=== PATIENT | male | born 1965 | race Caucasian/White ===

== ENCOUNTER 2016-09-28 10:11 | Emergency (ER) | payer OTHER ==
[~2016-09-28] VITALS: Ht 188 cm; Wt 83.5 kg
[~2016-09-28 10:11] MED LIST: ACETAMINOPHEN-1 EAC1 ORAL; ALBUTEROL SULF8.5 GM INH; AZITHROMYCIN500 MG ORAL; FLONASE ALLERG9.9 ML NS; IBUPROFEN600 MG ORAL; NKM; PROMETHAZINE-C118 M1 ORAL; ZITHROMAX250 MG ORAL; ZYRTEC10 MG ORAL
[2016-09-28 10:16] VITALS: BP 117/78
[2016-09-28] MEDS ORDERED: COLACE100 MG ORAL (10:33)
[2016-09-28] MEDS ORDERED: KEFLEX500 MG ORAL (10:33)
[2016-09-28] MEDS ORDERED: IBUPROFEN600 MG ORAL (10:33)
[2016-09-28] MEDS ORDERED: BACTRIM DS TAB1 EAC1 ORAL (10:33)
[2016-09-28] MEDS ORDERED: NORCO 5-325 TA1 EACH ORAL (10:33)
[2016-09-28] MEDS ORDERED: Norco 5mg/325mg tab ORAL ONE (10:45)
--- NOTE | 2016-09-28 15:21 | Emergency Room Report ---
History of Present Illness General Chief Complaint: Skin Rash/Abscess Source: Patient Present Illness HPI Patient presents emergency department today complaining of rash and pain to his left testicular area. He states that he's had a history of a cyst there in the past. He states that the pain has been getting worse over last couple days. He noticed that he was coming to ahead and expressed her last night and pus came out. In any fever chest pain shortness breath. Denies any dysuria or frequency. Denies any immunocompromising conditions. He does shave in this area. Symptoms noted to be severe. No other modifying factors. No other associated signs and symptoms. No other complaints were noted. Allergies: Coded Allergies: NO KNOWN ALLERGIES (Unverified Allergy, Unknown, 03/12/15) Patient History Past Medical History: none Past Surgical History: none Pertinent Family History: none Social History: Denies: alcohol use, drug use, smoking Reviewed Nursing Documentation: PMH: Agreed, PSxH: Agreed Nursing Documentation-PMH Past Medical History: No History, Except For Review of Systems All Other Systems: negative except mentioned in HPI Physical Exam Vital Signs Date Time Temp Pulse Resp B/P Pulse Ox O2 Delivery O2 Flow Rate FiO2 09/28/16 10:16 97.5 17 117/78 98 Room Air 09/28/16 10:16 68 Sp02 EP Interpretation: reviewed, normal General Appearance: normal inspection, well appearing, no apparent distress, alert Head: atraumatic Eyes: bilateral eye normal inspection ENT: normal ENT inspection, hearing grossly normal, normal voice Neck: normal inspection, full range of motion, supple, no bony tend Respiratory: normal inspection, lungs clear, normal breath sounds, no respiratory distress, no retraction, no wheezing Cardiovascular #1: regular rate, rhythm, no edema Gastrointestinal: normal inspection, normal bowel sounds, non tender, soft, no guarding, no hernia Genitourinary: no CVA tenderness, other - Left scrotal erythema and tenderness no evidence of fluctuance Musculoskeletal: normal inspection, back normal, normal range of motion Neurologic: normal inspection, alert, responsive, speech normal Psychiatric: normal inspection, judgement/insight normal, mood/affect normal Skin: normal inspection, normal color, no rash Medical Decision Making Diagnostic Impression: Primary Impression: Abscess Additional Impression: Cellulitis ER Course Patient presents emergency department today complaining of left sided scrotal pain and swelling. Differential considerations include infection, cellulitis, abscess, fornier's gangrene. Patient exam is consistent with mild cellulitis and abscess. After the patient would benefit from antibiotics. There is no evidence of fluctuance and pus has already been expressed by the patient therefore I felt that no kind he was near this time. Recommend antibiotics and close followup.Patient is advised to follow up with primary doctor in 2-3 days and return the emergency room for any worsening symptoms and as needed. Last Vital Signs Date Time Temp Pulse Resp B/P Pulse Ox O2 Delivery O2 Flow Rate FiO2 09/28/16 10:16 97.5 68 17 117/78 98 Room Air Status: improved Disposition: HOME, SELF-CARE Condition: Stable Scripts Docusate Sodium* (COLACE*) 100 Mg Capsule 100 MG ORAL TWICE A DAY for 14 Days, CAP Prov: DEEPTI OLVERA M.D. 09/28/16 Trimethoprim/Sulfamethoxazole 160/800* (BACTRIM DS TABLET*) 1 Each Tablet 1 TAB ORAL Q12H, #14 TAB 0 Refills Prov: DEEPTI OLVERA M.D. 09/28/16 Cephalexin* (KEFLEX*) 500 Mg Capsule 500 MG ORAL Q6H, #28 CAP 0 Refills Prov: DEEPTI OLVERA M.D. 09/28/16 Ibuprofen* (MOTRIN*) 600 Mg Tablet 600 MG ORAL Q8H Y for For Pain, #30 TAB 0 Refills Prov: DEEPTI OLVERA M.D. 09/28/16 Hydrocodone Bit/Acetaminophen 5-325* (NORCO 5-325*) 1 Each Tablet 1 TAB ORAL Q6H Y for For Pain, #20 TAB 0 Refills Prov: DEEPTI OLVERA M.D. 09/28/16 Referrals: [facility] (PCP) Departure Forms: Return to Work Return to Work in (Days): 5 Patient Instructions: Abscess DEEPTI OLVERA M.D. Sep 28, 2016 15:21
[2016-09-28 15:43] VITALS: BP 124/74
== END 2016-09-28 11:17 | disposition home or self-care (01) ==
LOC: EMR 10:35
DX: N49.2 Inflammatory disorders of scrotum (principal)
CPT/HCPCS: 99284

== ENCOUNTER 2018-08-19 13:22 | Emergency (ER) | payer OTHER ==
[~2018-08-19] VITALS: Ht 188 cm; Wt 86.2 kg
[~2018-08-19 13:22] MED LIST changes: +BACTRIM DS TAB1 EAC1 ORAL; +COLACE100 MG ORAL; +KEFLEX500 MG ORAL; +NORCO 5-325 TA1 EACH ORAL
[2018-08-19 13:56] VITALS: BP 139/102
--- NOTE | 2018-08-19 13:59 | NUR ---
ED Nurse Note: Patient walked in to ER c/o sore throat, coughing, and headache 11/09. pt aao x4 and ambulatory. congestion noted. skin clean and intact. calm and cooperative. not coughing at this moment.
[2018-08-19] MEDS ORDERED: PROMETHAZINE-C118 M1 ORAL (14:40)
[2018-08-19] MEDS ORDERED: ALBUTEROL SULF8.5 GM INH (14:40)
[2018-08-19] MEDS ORDERED: AMOXICILLIN500 MG ORAL (14:40)
[2018-08-19 14:48] VITALS: BP 139/102
--- NOTE | 2018-08-19 14:51 | NUR ---
discharged home with instruction and rx follow up with pmd
--- NOTE | 2018-08-19 19:46 | Emergency Room Report ---
History of Present Illness General Chief Complaint: Flu Like Symptoms Source: Patient Present Illness HPI 52-year-old male presents ED for evaluation. Patient complaining of cough and congestion. States symptoms started 2 weeks ago when he returned from [employer] but states symptoms have worsened in the last 5 days. Cough is productive with greenish phlegm. Notes bodyaches and chills. Afebrile in triage. Has tried [id number] medication without relief. No other aggravating relieving factors. Denies any other associated symptoms Allergies: Coded Allergies: NO KNOWN ALLERGIES (Unverified Allergy, Unknown, 03/12/15) Patient History Past Medical History: none Past Surgical History: none Pertinent Family History: none Social History: Denies: smoking, alcohol use, drug use Immunizations: UTD Reviewed Nursing Documentation: PMH: Agreed; PSxH: Agreed Nursing Documentation-PMH Hx Cardiac Problems: No - kidney stones Review of Systems All Other Systems: negative except mentioned in HPI Physical Exam Vital Signs Date Time Temp Pulse Resp B/P (MAP) Pulse Ox O2 Delivery O2 Flow Rate FiO2 08/19/18 13:37 98.2 86 22 93 Room Air 08/19/18 13:56 139/102 Sp02 EP Interpretation: reviewed, normal General Appearance: no apparent distress, alert, GCS 15, non-toxic Head: normocephalic, atraumatic Eyes: bilateral eye normal inspection, bilateral eye PERRL ENT: hearing grossly normal, normal pharynx, no angioedema, normal voice Neck: full range of motion, supple/symm/no masses Respiratory: chest non-tender, lungs clear, normal breath sounds, speaking full sentences Cardiovascular #1: regular rate, rhythm, no edema Cardiovascular #2: 2+ carotid (R), 2+ carotid (L), 2+ radial (R), 2+ radial (L) , 2+ dorsalis pedis (R), 2+ dorsalis pedis (L) Gastrointestinal: normal bowel sounds, non tender, soft, non-distended, no guarding, no rebound Rectal: deferred Genitourinary: normal inspection, no CVA tenderness Musculoskeletal: back normal, gait/station normal, normal range of motion, non- tender Neurologic: alert, oriented x3, responsive, motor strength/tone normal, sensory intact, speech normal Psychiatric: judgement/insight normal, memory normal, mood/affect normal, no suicidal/homicidal ideation Reflexes: 3+ bicep (R), 3+ bicep (L), 3+ tricep (R), 3+ tricep (L), 3+ knee (R) , 3+ knee (L) Skin: normal color, no rash, warm/dry, well hydrated Lymphatic: no adenopathy Medical Decision Making Diagnostic Impression: Primary Impression: Atypical pneumonia ER Course Hospital Course 52 -year-old male presents ED complaining of bodyaches and cough x2 weeks Differential diagnoses include: URI, pharyngitis, otitis media, asthma Clinical course Patient placed on stretcher. After initial history, physical exam reveals a female in no acute distress. Bilateral TM unremarkable. No pharyngeal erythema. No tonsillar exudates. No lymphadenopathy. lungs clear. abdomen soft. Presentation consistent with atypical pneumonia. Given presentation, i will prescribe antibiotics Safe for discharge and close outpatient follow-up. States he has a PMD Diagnosis - atypical pneumonia Stable and discharged home with Rx amoxicillin, promethazine/codeine, albuterol. Instructed to followup with PMD. Return to ED if symptoms recur or worsen Last Vital Signs Date Time Temp Pulse Resp B/P (MAP) Pulse Ox O2 Delivery O2 Flow Rate FiO2 08/19/18 14:48 98.2 81 22 139/102 93 Room Air Status: improved Disposition: HOME, SELF-CARE Condition: Stable Scripts Albuterol Sulfate* (ALBUTEROL SULFATE MDI*) 8.5 Gm Hfa.aer.ad 2 PUFF INH Q6H, #1 EA 0 Refills Prov: Myron Pérez MD 08/19/18 Codeine/Promethazine Hcl* (PROMETHAZINE-CODEINE SYRUP*) 118 Ml Syrup 5 ML ORAL Q6H PRN for For Cough, #118 ML 0 Refills Prov: Myron Pérez MD 08/19/18 Amoxicillin* (AMOXIL*) 500 Mg Capsule 500 MG ORAL THREE TIMES A DAY, #21 CAP Prov: Myron Pérez MD 08/19/18 Referrals: [facility] ([facility]P) Patient Instructions: Community-Acquired Pneumonia, Adult, [id number] yMron Pérez MD August 19, 2018 19:46
== END 2018-08-19 14:50 | disposition home or self-care (01) ==
LOC: EMR 14:15
DX: J18.9 Pneumonia, unspecified organism (principal)
CPT/HCPCS: 99282

== ENCOUNTER 2018-08-28 13:09 | Emergency (ER) | payer OTHER ==
[~2018-08-28] VITALS: Ht 188 cm; Wt 83.9 kg
[~2018-08-28 13:09] MED LIST changes: +AMOXICILLIN500 MG ORAL
[2018-08-28 14:15] VITALS: BP 138/67
--- NOTE | 2018-08-28 14:16 | NUR ---
ED Nurse Note:pt. came with continious coughing , A/Ox4 no fever
--- NOTE | 2018-08-28 14:26 | Emergency Room Report ---
History of Present Illness General Chief Complaint: Upper Respiratory Illness Source: Patient Present Illness HPI 52-year-old male presents to the emergency department for follow-up after completion of treatment for pneumonia. Patient reports that he continues to have cough with some mucus he denies fevers or chills and reports that he has a much easier time with activities and talking. Patient denies history of asthma he denies recent travel or ill contacts. Patient denies pain at this time. Patient states he completed his amoxicillin. He states he is out of albuterol and would like a refill. No other aggravating or relieving factors. Denies CP, Palpitations or SOB. Allergies: Coded Allergies: NO KNOWN ALLERGIES (Unverified Allergy, Unknown, 03/12/15) Patient History Past Medical History: see triage record Past Surgical History: none Pertinent Family History: none Immunizations: UTD Reviewed Nursing Documentation: PMH: Agreed; PSxH: Agreed Nursing Documentation-PM Past Medical History: No History, Except For Hx Cardiac Problems: No - kidney stones Review of Systems All Other Systems: negative except mentioned in HPI Physical Exam Vital Signs Date Time Temp Pulse Resp B/P (MAP) Pulse Ox O2 Delivery O2 Flow Rate FiO2 08/28/18 13:31 98.2 75 20 138/67 (90) 99 Room Air Sp02 EP Interpretation: reviewed, normal General Appearance: no apparent distress, alert, GCS 15, non-toxic Head: normocephalic, atraumatic Eyes: bilateral eye normal inspection, bilateral eye PERRL ENT: hearing grossly normal, normal voice Neck: full range of motion Respiratory: chest non-tender, lungs clear, normal breath sounds, no respiratory distress, no wheezing, speaking full sentences Cardiovascular #1: regular rate, rhythm Gastrointestinal: normal bowel sounds, non tender, soft Musculoskeletal: back normal, gait/station normal, normal range of motion Neurologic: alert, oriented x3, responsive, motor strength/tone normal, sensory intact, speech normal, grossly normal Psychiatric: judgement/insight normal Skin: normal color, no rash, warm/dry, well hydrated Medical Decision Making PA Attestation Dr. walden is my supervising Physician whom patient management has been discussed with. Diagnostic Impression: Primary Impression: Upper respiratory infection Qualified Codes: J06.9 - Acute upper respiratory infection, unspecified ER Course 52-year-old male presents to the emergency department for follow-up after completion of treatment for pneumonia. Patient reports that he continues to have cough with some mucus he denies fevers or chills and reports that he has a much easier time with activities and talking. Patient denies history of asthma he denies recent travel or ill contacts. Patient denies pain at this time. Patient states he completed his amoxicillin. He states he is out of albuterol and would like a refill. No other aggravating or relieving factors. Denies CP, Palpitations or SOB. Ddx considered but are not limited to URI, pneumonia, PE, strep pharyngitis, meningitis. Vital signs: Pt.is afebrile VS are WNL H&PE are most consistent with bronchitis secondary to recent atypical pna infection. ORDERS: -CXR: WNL no evidence of persistent infection at this time. ED INTERVENTIONS: None required at this time. DISCHARGE: At this time pt. is stable for d/c to home. Will provide printed patient care instructions, and any necessary prescriptions. Care plan and follow up instructions have been discussed with the patient prior to discharge. Chest X-Ray Diagnostic Results Chest X-Ray Diagnostic Results : Chest X-Ray Ordered: Yes # of Views/Limited/Complete: 1 View Indication: Shortness of Breath EP Interpretation: Yes PA Xray: Interpretation reviewed, by supervising MD, and agrees with findings. Interpretation: no consolidation, no effusion, no pneumothorax, no acute cardiopulmonary disease Impression: No acute disease Electronically Signed by: Shari Abreu PA-C Last Vital Signs Date Time Temp Pulse Resp B/P (MAP) Pulse Ox O2 Delivery O2 Flow Rate FiO2 08/28/18 13:31 98.2 75 20 138/67 (90) 99 Room Air Status: improved Disposition: HOME, SELF-CARE Condition: Stable Scripts Albuterol Sulfate* (ALBUTEROL SULFATE MDI*) 8.5 Gm Hfa.aer.ad 2 PUFF INH Q3H, #1 INH 3 Refills Prov: Shari Abreu 08/28/18 Guaifenesin (Guaifenesin) 1,200 Mg Tab.er.12h 1200 MG PO Q12HR, #20 TAB Prov: Shari Abreu 08/28/18 Referrals: NON PHYSICIAN (PCP) Patient Instructions: Cough, Adult, [id number] Additional Instructions: Take medications as directed. Return sooner to ED if new symptoms occur, or current symptoms become worse. - Please note that this Emergency Department Report was dictated using Vimodisteamfitter apprentice technology software, occasionally this can lead to erroneous entry secondary to interpretation by the dictation equipment. Shari Abreu August 28, 2018 14:25
[2018-08-28] MEDS ORDERED: GUAIFENESIN1200 MG PO (14:27)
[2018-08-28] MEDS ORDERED: ALBUTEROL SULF8.5 GM INH (14:27)
[2018-08-28 15:02] VITALS: BP 138/67
--- NOTE | 2018-08-28 15:04 | NUR ---
ER DISCHARGE NOTE: Patient is cleared to be discharged per ERPA, pt is aox4, on room air, with stable vital signs. pt was given dc and prescription instructions, pt was able to verbalize understanding, pt is able to ambulate with steady gait. pt took all belongings.
--- NOTE | 2018-08-28 15:50 | Diagnostic Imaging Report ---
Indication: Chest pain Technique: One view of the chest Comparison: 12/29/2015 Findings: The heart is borderline enlarged. The lungs and pleural spaces are clear. No significant interim change Impression: Border line cardiomegaly. No acute process
== END 2018-08-28 15:11 | disposition home or self-care (01) ==
LOC: EMR 13:52
DX: J06.9 Acute upper respiratory infection, unspecified (principal); Z87.442 Personal history of urinary calculi
CPT/HCPCS: 71045; 99283

== ENCOUNTER 2018-09-12 12:19 | Emergency (ER) | payer OTHER ==
[~2018-09-12] VITALS: Ht 188 cm; Wt 81.6 kg
[~2018-09-12 12:19] MED LIST changes: +GUAIFENESIN1200 MG PO
[2018-09-12 12:39] VITALS: BP 117/73
--- NOTE | 2018-09-12 12:46 | Emergency Room Report ---
History of Present Illness General Chief Complaint: Upper Respiratory Illness Source: Patient Present Illness HPI 52 old male presents to the emergency department complaining of chronic cough x2 months and he has completed outpatient antibiotic treatment and is been using albuterol inhaler. Patient denies history of asthma, COPD or smoking. Patient states that he continues to have persistent cough. Denies fevers, chills, pain, sore throat, nasal congestion or rhinorrhea. No aggravating or relieving factors at this time. Has PMD appt. next week. Allergies: Coded Allergies: NO KNOWN ALLERGIES (Unverified Allergy, Unknown, 03/12/15) Patient History Past Medical History: see triage record Past Surgical History: none Pertinent Family History: none Reviewed Nursing Documentation: PMH: Agreed; PSxH: Agreed Nursing Documentation-PMH Past Medical History: No History, Except For Hx Cardiac Problems: No Review of Systems All Other Systems: negative except mentioned in HPI Physical Exam Vital Signs Date Time Temp Pulse Resp B/P (MAP) Pulse Ox O2 Delivery O2 Flow Rate FiO2 09/12/18 12:28 98.1 78 16 117/73 (88) 98 Room Air Sp02 EP Interpretation: reviewed, normal General Appearance: no apparent distress, alert, GCS 15, non-toxic Head: normocephalic, atraumatic Eyes: bilateral eye normal inspection, bilateral eye PERRL ENT: hearing grossly normal, normal voice Neck: full range of motion Respiratory: chest non-tender, lungs clear, normal breath sounds, speaking full sentences, wheezing Cardiovascular #1: regular rate, rhythm, no edema, normal capillary refill Genitourinary: normal inspection Musculoskeletal: back normal, gait/station normal, normal range of motion, non- tender Neurologic: alert, oriented x3, responsive, motor strength/tone normal, sensory intact, speech normal, grossly normal Psychiatric: judgement/insight normal Skin: normal color, no rash, warm/dry, well hydrated Lymphatic: no adenopathy Medical Decision Making PA Attestation Dr. Kearney is my supervising physician whom pt. management has been discussed with. Diagnostic Impression: Primary Impression: Chronic cough ER Course 52 old male presents to the emergency department complaining of chronic cough x2 months and he has completed outpatient antibiotic treatment and is been using albuterol inhaler. Patient denies history of asthma, COPD or smoking. Patient states that he continues to have persistent cough. Denies fevers, chills, pain, sore throat, nasal congestion or rhinorrhea. No aggravating or relieving factors at this time. Has PMD appt. next week. Ddx considered but are not limited to asthma exacerbation, CHF, URI, pneumonia, PE, strep pharyngitis, meningitis. Vital signs: Pt. is afebrile, VS are WNL H&PE are most consistent with bronchitis exacerbation ORDERS: none required at this time, the diagnosis is clinical ED INTERVENTIONS: Albuterol nebulized treatment. - re-examination post nebulized treatment lungs are CTA bilaterally. DISCHARGE: At this time pt. is stable for d/c to home. Will provide printed patient care instructions, and any necessary prescriptions. Care plan and follow up instructions have been discussed with the patient prior to discharge. Last Vital Signs Date Time Temp Pulse Resp B/P (MAP) Pulse Ox O2 Delivery O2 Flow Rate FiO2 09/12/18 12:39 98.1 78 16 117/73 98 Room Air Status: improved Disposition: HOME, SELF-CARE Condition: Stable Scripts Prednisone* (PREDNISONE*) 20 Mg Tablet 40 MG ORAL DAILY for 5 Days, #10 TAB Prov: Shari Abreu 09/12/18 Albuterol Sulfate* (ALBUTEROL SULFATE MDI*) 8.5 Gm Hfa.aer.ad 2 PUFF INH Q3H, #1 INH 0 Refills Prov: Shari Abreu 09/12/18 Patient Instructions: Cough, Adult, [id number] Additional Instructions: Take medications as directed. Follow up with a Primary Care Provider in 3-5 days, even if your symptoms have resolved. [facility] referral is recommended for persistent cough Return sooner to ED if new symptoms occur, or current symptoms become worse. - Please note that this Emergency Department Report was dictated using [employer]marine electronics technician technology software, occasionally this can lead to erroneous entry secondary to interpretation by the dictation equipment. Shari Abreu Sep 12, 2018 12:46
[2018-09-12] MEDS: Albuterol ud Inhalation HHN ONE (13:33)
[2018-09-12] MEDS ORDERED: ALBUTEROL SULF8.5 GM INH (13:48)
[2018-09-12] MEDS ORDERED: PREDNISONE20 MG ORAL (13:48)
[2018-09-12 13:59] VITALS: BP 121/70
== END 2018-09-12 14:01 | disposition home or self-care (01) ==
LOC: EMR 13:00
DX: R05 Cough (principal)
CPT/HCPCS: 94640; 99284; J7512